=== PATIENT | female | born 1945 | race Caucasian/White ===

== ENCOUNTER → 2017-05-20 | Outpatient (CLI) | payer OTHER, MEDICARE ==
[~2017-05-20] MED LIST: ACETAMINOPHEN325 M1 PO; ACYCLOVIR 400400 MG PO; ADULT LOW DOSE81 MG PO; AMOXIL 875 MG875 M1 PO; AUGMENTIN 875875 MG PO; CALCIUM 600 +1 EAC1 PO; COLACE 100 MG100 MG PO; COLACE100 MG PO; DEXILANT60 MG PO; DOCUSATE SODIU100 MG PO; DULERA 200 MCG/13 GM INH; EFFEXOR XR75 MG PO; ELIQUIS5 MG PO; FENTANYL PATCH75 MCG TRANSDERM; FLEXERIL PO; FLONASE 0.05%50 MCG NASAL; FOLIC ACID1 MG PO; GAVISCON ES CH1 EAC1 PO; IBUPROFEN 800800 M1 PO; IRON 21/7 TABL1 EACH PO; IRON PO; IRON325 PO; METHOTREXATE 22.5 M1 PO; MUCINEX100 MG PO; MUCINEX1200 MG PO; MUCINEX600 MG PO; NEURONTIN 300M300 M2 PO; NEXIUM20 MG PO; NORCO 5-325 TA1 EACH PO; NYSTATIN 1100000 U/M SW&SWALLOW; OXYCODONE HCL5 M1 PO; OXYCODONE-ACET1 EACH PO; PEPCID20 MG PO; PREDNISONE 1 MG1 M1 PO; PREDNISONE 10 M10 MG PO; PREVACID15 MG PO; PROAIR HFA8.5 GM INH; PROTONIX40 M2 PO; SENNA PO; SPIRIVA INH; TYLENOL325 MG PO; VALIUM5 MG PO; VENLAFAXINE HC225 MG PO; VICODIN PO; VITAMIN D2000 UNIT PO; VITAMIN D32000 UNI1 PO; ZANTAC 150MG T150 M1 PO; ZOFRAN ODT4 MG PO
[2017-05-20 15:45] LABS: HEMATOCRIT 39.3 % (37.0-47.0); HEMOGLOBIN 13.2 gm/dL (12.0-15.0); MCH 34.3 pg (26.0-34.0); MCHC 33.5 g/dL (28.0-37.0); MCV 102.4 fL (80.0-100.0); RBC 3.84 mil/uL (4.20-5.00); RDW 16.5 % (10.5-14.5); WBC 7.6 thou/uL (4.0-11.0)
== END ==
LOC: RAD 15:22
PROVIDERS: Internal Medicine Pulmonary Disease
DX: R06.00 Dyspnea, unspecified (principal); J45.909 Unspecified asthma, uncomplicated; I50.9 Heart failure, unspecified; E78.00 Pure hypercholesterolemia, unspecified; E11.9 Type 2 diabetes mellitus without complications

== ENCOUNTER 2017-05-22 08:28 | Inpatient (IN) | payer OTHER, MEDICARE ==
[~2017-05-22] VITALS: Ht 160 cm; Wt 80.7 kg
--- NOTE | ~2017-05-22 | 2DMMODE ---
[facility] [address] [place] [address] 2 D/M-MODE ECHOCARDIOGRAM Name: JUANCHOARELI Room #: 215-P ADM IN M.R.#: [id number] Admission: 05/22/17 Attend Phys: Yris Quinones Discharge: Date of : 49 Date of Service: 05/22/17 1453 Report #: [id number] THIS REPORT FOR: //name// APPROVED REPORT Study performed: 05/22/2017 13:20:35 EXAM: Comprehensive 2D, Doppler, and color-flow Echocardiogram Patient Location: Echo lab Room #: [facility] [place] Status: routine BSA: 1.81 HR: 90 bpm BP: 107/70 mmHg Rhythm: NSR/Irregular Other Information Study Quality: Adequate Technically limited study due to lung disease. Indications COPD Pulmonary Hypertension 2D Dimensions RVDd: 38.39 mm LVEF(%): 60.44 (>50%) IVSd: 11.09 (7-11mm) LVOT Diam: 19.80 (18-24mm) LVDd: 44.54 mm PWd: 11.33 (7-11mm) Ascending Ao: 31.87 (22-36mm) LVDs: 30.24 (25-40mm) Aortic Root: 30.07 mm Cho's LVEF: 60.44 % Volumes Left Atrial Volume (Systole) Single Plane 4CH: 23.65 mL Single Plane 2CH: 63.36 mL LA ESV Index: 23.00 mL/m2 Aortic Valve AoV Peak Cleve.: 1.24 m/s AO Peak Gr.: 6.18 mmHg LVOT Max P.79 mmHg LVOT Max V: 0.97 m/s CORAL Vmax: 2.41 cm2 [facility] [address] [place] [address] 2 D/M-MODE ECHOCARDIOGRAM Name: PRATIBHAJAVONTREYARELI Room #: 215-[facility] IN .R.#: [id number] Admission: 05/22/17 Attend Phys: Yris Quinones Discharge: Date of : 49 Date of Service: 05/22/17 1453 Report #: [id number] Mitral Valve E/A Ratio: 0.7 MV Decel. Time: 233.35 ms MV E Max Cleve.: 0.52 m/s MV A Cleve.: 0.76 m/s MV PHT: 67.67 ms IVRT: 115.34 ms Pulmonary Valve PV Peak Cleve.: 1.12 m/s PV Peak Gr.: 5.06 mmHg Tricuspid Valve TR Peak Cleve.: 2.67 m/s RAP Estimate: 5.00 mmHg TR Peak Gr.: 28.48 mmHg PA Pressure: 33.00 mmHg Left Ventricle The left ventricle is normal size. There is normal left ventricular wall thickness. The left ventricular systolic function is normal. LVEF is 50-55%. Grade I - abnormal relaxation pattern. Right Ventricle The right ventricle is normal size. The right ventricular systolic function is normal. Atria The left atrium size is normal. The right atrium size is normal. Aortic Valve The aortic valve is normal in structure. No aortic regurgitation is present. There is no aortic valvular stenosis. Mitral Valve The mitral valve is normal in structure. There is no mitral valve regurgitation noted. No evidence of mitral valve stenosis. Tricuspid Valve The tricuspid valve is normal in structure. Trace tricuspid regurgitation. Estimated PAP 33 mmHg. Pulmonic Valve The pulmonary valve is normal in structure. Trace pulmonic regurgitation. [employer] [facility] [address] [place] [address] 2 D/M-MODE ECHOCARDIOGRAM Name: ARELI DAWKINS Room #: 215-P ADM IN M.R.#: [id number] Admission: 05/22/17 Attend Phys: Yris Quinones Discharge: Date of : 49 Date of Service: 05/22/17 1453 Report #: [id number] The aortic root is normal in size. The ascending aorta is normal in size. IVC is normal in size and collapses >50% with inspiration. Pericardium There is no pericardial effusion. <Conclusion> The left ventricle is normal size. The left ventricular systolic function is normal. LVEF is 50-55%. Grade I - abnormal relaxation pattern. The right ventricle is normal size. The left atrium size is normal. The aortic valve is normal in structure. There is no mitral valve regurgitation noted. Trace tricuspid regurgitation. Estimated PAP 33 mmHg. There is no pericardial effusion. <ELECTRONICALLY SIGNED> By: Michael Cee MD, FACC 05/22/17 1453 1453 1453 Michael Cee MD, FACC /INF
[~2017-05-22 08:28] MED LIST changes: -CALCIUM 600 +1 EAC1 PO; -ELIQUIS5 MG PO; -MUCINEX1200 MG PO; -MUCINEX600 MG PO; -NEURONTIN 300M300 M2 PO; -VITAMIN D2000 UNIT PO; -ZANTAC 150MG T150 M1 PO
[2017-05-22 09:37] LABS: CREATININE 1.3 mg/dL (0.6-1.0)
[2017-05-22 11:30] VITALS: BP 124/84
[2017-05-22 13:27] LABS: HEMATOCRIT 38.1 % (37.0-47.0); HEMOGLOBIN 12.5 gm/dL (12.0-15.0); MCH 33.6 pg (26.0-34.0); MCHC 32.7 g/dL (28.0-37.0); MCV 102.9 fL (80.0-100.0); RBC 3.71 mil/uL (4.20-5.00); RDW 16.8 % (10.5-14.5)
[2017-05-22 13:36] LABS: ALBUMIN 3.2 g/dL (3.4-5.0); CALCIUM 9.1 mg/dL (8.5-10.1); CREATININE 1.2 mg/dL (0.6-1.0); POTASSIUM 4.5 mmol/L (3.5-5.1); TOTAL BILIRUBIN 0.4 mg/dL (<0.1-1.0); TOTAL PROTEIN 6.6 g/dL (6.4-8.2)
[2017-05-22 13:39] LABS: PROTIME 9.8 Seconds (9.3-11.4)
[2017-05-22] MEDS ORDERED: PROTONIX40 M2 PO (15:35)
[2017-05-22] MEDS ORDERED: MUCINEX600 MG PO (15:40)
[2017-05-22] MEDS ORDERED: MUCINEX1200 MG PO (15:41)
[2017-05-22] MEDS ORDERED: ZANTAC 150MG T150 M1 PO (15:42)
[2017-05-22] MEDS ORDERED: VITAMIN D2000 UNIT PO (15:42)
[2017-05-22] MEDS ORDERED: CALCIUM 600 +1 EAC1 PO (15:43)
[2017-05-22] MEDS ORDERED: NEURONTIN 300M300 M2 PO (15:43)
[2017-05-22 15:55] VITALS: BP 121/73
[2017-05-22 20:09] VITALS: BP 128/68
[2017-05-23 05:44] VITALS: BP 121/76
[2017-05-23 07:45] VITALS: BP 117/43
[2017-05-23 11:55] VITALS: BP 100/69
[2017-05-23 16:00] VITALS: BP 84/54
[2017-05-23 21:00] VITALS: BP 104/65
[2017-05-24 04:17] VITALS: BP 105/66
[2017-05-24 07:05] VITALS: BP 136/81
[2017-05-24] MEDS ORDERED: ELIQUIS5 MG PO (08:55)
[2017-05-24 11:25] VITALS: BP 100/67
[2017-05-24 14:01] VITALS: BP 100/67
== END 2017-05-24 15:07 | disposition home or self-care (01) | DRG 176 ==
LOC: LABMALL 08:28 → CAT 08:28 → 2N 11:20
PROVIDERS: Hospitalist; Internal Medicine Pulmonary Disease
PROC: 05H533Z Insertion of Infusion Device into Right Subclavian Vein, Percutaneous Approach (ICD-10-PCS; principal; 2017-05-22)
DX: I26.99 Other pulmonary embolism without acute cor pulmonale (principal); K21.9 Gastro-esophageal reflux disease without esophagitis; G43.809 Other migraine, not intractable, without status migrainosus; J44.9 Chronic obstructive pulmonary disease, unspecified; F32.9 Major depressive disorder, single episode, unspecified; G35 Multiple sclerosis; G47.33 Obstructive sleep apnea (adult) (pediatric); E66.9 Obesity, unspecified; M19.90 Unspecified osteoarthritis, unspecified site; M31.6 Other giant cell arteritis; Z88.8 Allergy status to other drugs, medicaments and biological substances; Z98.51 Tubal ligation status; Z87.891 Personal history of nicotine dependence; Z87.01 Personal history of pneumonia (recurrent); Z68.31 Body mass index [BMI] 31.0-31.9, adult
CPT/HCPCS: 10081; 27001